=== PATIENT | male | born 1980 | race Caucasian/White ===

== ENCOUNTER → 2019-03-26 16:21 | Outpatient (CLI) | payer BC, SELFPAY ==
--- NOTE | 2019-03-26 16:32 | XR_ITS ---
XR foot LT min 3V HISTORY: ITS.REASON: PAIN ORDERING PHYSICIAN: David Pruitt MD PATIENT AGE: 38 years COMPARISON: None FINDINGS: No fracture or dislocation. No lytic or blastic change. There is normal mineralization.. The joint spaces are well-preserved. No significant degenerative/arthritic changes. No erosive changes evident. IMPRESSION: Negative, no acute finding
== END ==
PROVIDERS: PCP Family Medicine; Visit Provider Family Medicine
DX: M79.672 Pain in left foot (principal)
CPT/HCPCS: 73630

== ENCOUNTER 2020-02-14 20:21 | Emergency (ER) | payer BC, SELFPAY ==
[2020-02-14 20:21] VITALS: BP 139/95; PULSE 95; RESP 16; TEMP 38.3; O2SAT 98
--- NOTE | 2020-02-14 20:25 | PC.NURSE ---
Pt arrived to ER via [facility] at 2010. (trauma alert called) On arrival pt had 500ml bag of NS infusing wide open to a 20g IV in his left AC. pt was on a spine board. no C-Collar present at this time. Pt stated he was up on a 12ft ladder in a tree in his yard trying to cut a limb down when the ladder kicked out from under him. the pt fell approx. 12ft and landed on his right side on top of the ladder. pt denies any head injury or LOC during accident. pt c/o right side pain and rt elbow pain at this time. pt denies any alcohol consumption tonight. C-Collar applied immediately on arrival (2012). Pts clothes are cut of to expose pt to assess for further injuries. Pt A&O X3. PERRLA. Bilateral breath sounds present and clear. abdomen palpated. pt denies any pain. abdomen is soft and non-tender. pt has abrasions present to his right rib cage and right anterior elbow. pt has full range of motion to right arm. pt pelvis assessed. no pain reported. lower extremities assessed. +3 distal pulses present at all extremities. 2016: pts neck stabilized by staff and pt was then rolled to remove spine board and assess the pts posterior side. No visible sign of injury present. second IV assess placed. 18g to right AC at this time with 1000ml of NS started. FSBS obtained: 107
[2020-02-14 20:26] VITALS: BMI 29.2
--- NOTE | 2020-02-14 20:27 | CT_ITS ---
PROCEDURE: CT ABDOMEN PELVIS W CON CLINICAL INDICATION: trauma. fell from 12 ft ladder Right-sided pain following injury, blunt trauma with contusion or hematoma COMPARISON: No exams were available for comparison TECHNIQUE: IV Contrast: 75ML OPTIRAY 350 Oral Contrast 20ml Gastroview Axial images obtained with sagittal and coronal reformats. All CT scans at the facility use one or more dose reduction, viz: automated exposure control, ma/kV adjustment per patient size (including targeted exams where dose is matched to indication, i.e. head), or iterative reconstruction technique. FINDINGS: There are mildly displaced fractures involving the right 7th through 12th ribs. The 7th 8th and 9th rib fractures are lateral. The 10th and 11th rib fractures posterior lateral in the 12th rib fractures posterior no hepatic laceration apparent. No perihepatic fluid. The spleen, adrenal glands, pancreas, gallbladder, and right kidney have an unremarkable appearance. There is a 3.8 cm cyst projecting off the lateral aspect of the left kidney. No evidence of appendicitis or diverticulitis. No pelvic mass or abnormal fluid collection. No free air or small bowel obstruction. There is a tiny umbilical hernia which contains fat. There are few small sclerotic foci in the pelvis which may be due to small bone islands. Nondisplaced fracture right L1 and L2 transverse process. Mildly displaced right L3 and L4 transverse process fractures. There is some mild subcutaneous infiltration of the fat along the right flank consistent with contusion. IMPRESSION: 1. Acute displaced fractures of the right 7th through 12th ribs with acute fracture the right L1 through L4 transverse process. 2. No hemoperitoneum. No evidence of hepatic or splenic laceration with no acute intra-abdominal findings apparent Dictated by: Dave Owusu MD 02/15/2020 06:43 Electronically signed by Dave Owusu MD in [facility] 02/15/2020 06:43
--- NOTE | 2020-02-14 20:27 | XR_ITS ---
PROCEDURE: XR PELVIS 1-2V CLINICAL INDICATION: trauma. fell from 12 ft ladder Posttraumatic pain, trauma protocol/trauma alert COMPARISON: CT ABDOMEN PELVIS W CON from 02/14/2020 TECHNIQUE: XR Pelvis AP View FINDINGS: No fracture or dislocation is evident. No significant degenerative change. Contrast is present in the urinary bladder and right ureter. There is some increased density in the left pelvic region probably related to overlying attenuation from bowel IMPRESSION: No acute fracture Dictated by: Dave Owusu MD 02/15/2020 05:22 Electronically signed by Dave Owusu MD in [facility] 02/15/2020 05:22
--- NOTE | 2020-02-14 20:27 | CT_ITS ---
PROCEDURE: CT HEAD/BRAIN WO CON CLINICAL INDICATION: trauma. fell from 12 ft ladder Posttraumatic pain, Head injury with headache/pain, contusion, abrasion or hematoma COMPARISON: No exams were available for comparison TECHNIQUE: Axial images obtained. All CT scans at the facility use one or more dose reduction, viz: automated exposure control, ma/kV adjustment per patient size (including targeted exams where dose is matched to indication, i.e. head), or iterative reconstruction technique. FINDINGS: No midline shift, mass effect, intracranial hemorrhage, hydrocephalus, or extra-axial fluid collection is evident. The calvarium has an unremarkable appearance. No mastoid effusion. No sinus air-fluid level. IMPRESSION: No acute intracranial finding Dictated by: Dave Owusu MD 02/15/2020 06:27 Electronically signed by Dave Owusu MD in [facility] 02/15/2020 06:27
--- NOTE | 2020-02-14 20:27 | XR_ITS ---
PROCEDURE: XR CHEST AP CLINICAL HISTORY: trauma. fell from 12 ft ladder Posttraumatic pain, trauma alert, trauma protocol the COMPARISON: CT ANGIO CHEST from 02/14/2020 FINDINGS: The cardiomediastinal silhouette and pulmonary vascularity are within normal limits. The lungs are clear without infiltrates, suspicious nodules, or pleural effusions. There are nondisplaced right 7th, 8th, and 9th rib fractures laterally. No obvious pneumothorax. IMPRESSION: Right 7th 8th and 9th rib fractures otherwise negative Dictated by: Dave Owusu MD 02/15/2020 05:20 Electronically signed by Dave Owusu MD in [facility] 02/15/2020 05:20
--- NOTE | 2020-02-14 20:27 | CT_ITS ---
PROCEDURE: CT CERVICAL SPINE WO CON CLINICAL INDICATION: trauma. fell from 12 ft ladder Neck injury with pain, contusion/abrasion or hematoma, cervical sprain/strain, right-sided neck pain COMPARISON: No exams were available for comparison TECHNIQUE: Axial images obtained with sagittal and coronal reformats. All CT scans at the facility use one or more dose reduction, viz: automated exposure control, ma/kV adjustment per patient size (including targeted exams where dose is matched to indication, i.e. head), or iterative reconstruction technique. Axial spiral CT scanning performed of the cervical spine beginning at the base of the skull and continuing to the upper T-spine. 3-D multiplanar reconstruction with 3-D manipulation of volumetric data set in image rendering was completed by the radiologist and/or technologist with the supervision of the radiologist on independent workstation. FINDINGS: There is straightening/reversal of the normal lordosis which may be due to patient positioning or muscle spasm.. No fracture or dislocation. No lytic or blastic change. The disc spaces are well preserved. Lung apices are clear. Scattered small nodes are present in the neck. IMPRESSION: Straightening of cervical lordosis otherwise negative Dictated by: Dave Owusu MD 02/15/2020 06:30 Electronically signed by Dave Owusu MD in [facility] 02/15/2020 06:30
--- NOTE | 2020-02-14 20:27 | CT_ITS ---
PROCEDURE: CT ANGIO CHEST CLINCIAL INDICATION: trauma. fell from 12 ft ladder Blunt trauma, injury with pain with contusion or hematoma, right-sided chest and rib pain COMPARISON: CT ABDOMEN PELVIS W CON from 02/14/2020 TECHNIQUE: IV Contrast: 70ML OPTIRAY 350 Axial images obtained with sagittal and coronal reformats. All CT scans at the facility use one or more dose reduction, viz: automated exposure control, ma/kV adjustment per patient size (including targeted exams where dose is matched to indication, i.e. head), or iterative reconstruction technique. FINDINGS: HEART AND MEDIASTINAL STRUCTURES: Unremarkable. LUNGS AND PLEURAL SPACES: 6 mm noncalcified nodule along the right major fissure. 4 mm nodule along the left major fissure. Mild atelectatic or fibrotic change in the lingula. No evidence of pneumothorax. BONY STRUCTURES: Minimally offset fractures involve the right 7th through 12th ribs. UPPER ABDOMEN: Please see abdomen report ADDITIONAL FINDINGS: No other significant abnormalities. IMPRESSION: Minimally displaced fractures right 7th through 12th ribs. No evidence of pneumothorax or other acute anomaly. Noncalcified bilateral nodules associated with the fissures probably benign. 6-12 month follow-up may confirm short term stability Dictated by: Dave Owusu MD 02/15/2020 06:37 Electronically signed by Dave Owusu MD in [facility] 02/15/2020 06:37
[2020-02-14 20:52] LABS: Basophils # 0.1 K/mm3 (0-0.2); Basophils % 0.6 % (0.1-2.0); Eosinophils # 0.1 K/mm3 (0.0-0.4); Eosinophils % 1.1 % (0.1-12.0); Hematocrit 44.4 % (42.0-52.0); Hemoglobin 15.5 g/dL (14.1-18.0); Lymphocytes # 2.9 K/mm3 (0.7-4.5); Lymphocytes % 35.2 % (10-50); Mean Corpuscular Hemoglobin 31.6 pg (27.0-31.2); Mean Corpuscular Volume 90.2 fl (80-94); Mean Platelet Volume 7.8 fl (7.4-10.4); Monocytes # 0.3 K/mm3 (0.1-1.0); Monocytes % 3.4 % (1.7-9.3); Neutrophils % 59.8 % (37.0-80.0); Platelet Count 254 K/mm3 (142-424); Red Blood Count 4.92 M/mm3 (4.60-6.20); Red Cell Distribution Width 12.5 % (11.5-17.5); White Blood Count 8.4 K/mm3 (4.8-10.8)
--- NOTE | 2020-02-14 20:56 | XR_ITS ---
PROCEDURE: XR ELBOW RT MIN 3V CLINICAL INDICATION: FELL FROM LADDER PAIN AND ABRAISION RT ELBOW Posttraumatic pain COMPARISON: No exams were available for comparison FINDINGS: The the lateral view is rotated. Cannot adequately evaluate for AA fat pad. No definite fractures apparent. If pain persists, consider repeat exam with appropriate positioning. No obvious fracture. . No significant degenerative/arthritic changes. No erosive changes evident. Other findings:There is in antecubital IV cannula present IMPRESSION: No acute finding. See above for detail and limitations Dictated by: Dave Owusu MD 02/15/2020 05:18 Electronically signed by Dave Owusu MD in [facility] 02/15/2020 05:18
[2020-02-14 20:59] LABS: Chloride 104 mmol/L (98-107); Potassium 3.2 mmoL/L (3.5-5.1); Sodium 142 mmol/L (136-145)
[2020-02-14 21:01] LABS: Alanine Aminotransferase 88 U/L (12-78); Aspartate Amino Transferase 93 U/L (17-59); Blood Urea Nitrogen 11 mg/dl (9-20); Creatinine Clearance Estimated 121 mL/min (50-200); Estimated Glomerular Filt Rate 75 ml/min (>60); GFR (African American) 90 ML/MIN (>60)
[2020-02-14 21:02] LABS: Albumin Level 4.8 g/dl (3.5-5.0); Albumin/Globulin Ratio 1.5 (1.1-1.8); Alkaline Phosphatase 47 U/L (38-126); Anion Gap 12.2 mEq/L (5-15); Bilirubin,Total 0.7 mg/dl (0.2-1.3); Calcium 9.3 mg/dl (8.4-10.2); Carbon Dioxide 29 mmol/L (22.0-30.0); Globulin 3.1 g/dL (1.3-3.2); Glucose 128 mg/dl (74-100); Total Protein,Serum 7.9 g/dl (6.3-8.2)
[2020-02-14 21:04] LABS: Ethyl Alcohol < 10 mg/dl (0-10)
--- NOTE | 2020-02-14 21:14 | PC.NURSE ---
pt back from radiology.
--- NOTE | 2020-02-14 21:16 | PC.NURSE ---
PT CT cervical spine was clear. C-Collar removed at this time.
[2020-02-14 21:21] VITALS: BP 133/100; PULSE 90; RESP 16; O2SAT 98
--- NOTE | 2020-02-14 21:21 | PC.NURSE ---
consulting Dr. Bishop at [facility]
--- NOTE | 2020-02-14 21:33 | PC.NURSE ---
consulting [facility]
--- NOTE | 2020-02-14 21:39 | PC.NURSE ---
Dr. Valencia accepted
--- NOTE | 2020-02-14 21:39 | [facility].EDTRAUMA ---
ED Disposition Clinical Impression: Multiple rib fractures, Lumbar transverse process fracture Disposition: Xfer Other Condition on Discharge: Good Instructions: Trauma Referrals: Provider,Referral, [Primary Care Provider] - - Critical Care Critical Care Time: No Attestation: On 02/14/20, the high probability of a clinically significant, sudden or life threatening deterioration of the following system(s) required my full and direct attention, intervention and personal management. The time I documented below is in addition to time spent performing reported procedures but includes the following listed in this critical care notation. Medical Decision Making - Medical Records Medical records reviewed: Yes: I reviewed the patient's medical records. - [place] Inquiry Pt receiving controlled substance: No Vital Signs: 02/14/20 20:21 02/14/20 21:21 Temperature 100.9 F H Temperature Source Oral Pulse Rate [Left Radial] 95 H 90 Respiratory Rate 16 16 Blood Pressure [Right Arm] 139/95 H 133/100 H Blood Pressure Mean [Right Arm] 109 111 Blood Pressure Position [Right Arm] Sitting Sitting 02 Sat by Pulse Oximetry 98 98 Oxygen Delivery Method Room Air Room Air - Lab Data Lab results reviewed: Yes: I reviewed the patient's lab results. Lab Results 02/14/20 20:47: WBC 8.4, RBC 4.92, Hgb 15.5, Hct 44.4, MCV 90.2, MCH 31.6 H, MCHC 35.0, RDW 12.5, Plt Count 254, MPV 7.8, Neut % (Auto) 59.8, Lymph % (Auto) 35.2, [place] % (Auto) 3.4, Eos % (Auto) 1.1, Baso % (Auto) 0.6, Neut # (Auto) 5.0, Lymph # (Auto) 2.9, [place] # (Auto) 0.3, Eos # (Auto) 0.1, Baso # (Auto) 0.1 02/14/20 20:47: Sodium 142, Potassium 3.2 L, Chloride 104, Carbon Dioxide 29, Anion Gap 12.2, BUN 11, Creatinine 1.10, Estimated Creat Clear 121, Estimated GFR 75, Est GFR ( Amer) 90, Glucose 128 H, Calcium 9.3, Total Bilirubin 0.7, AST 93 H, ALT 88 H, Alkaline Phosphatase 47, Total Protein 7.9, Albumin 4.8, Globulin 3.1, Albumin/Globulin Ratio 1.5 02/14/20 20:47: Plasma/Serum Alcohol < 10 Result diagrams: 02/14/20 20:47 02/14/20 20:47 Orders (Tests/Meds): ED MEDICATIONS Generic Name Dose Route Start Last Admin Trade Name Freq PRN Reason Stop Dose Admin Sodium Chloride 1,000 mls @ 999 mls/hr 02/14/20 21:30 02/14/20 21:31 Sod Chlor 0.9% 1000ml Bag IV 02/14/20 22:30 999 mls/hr .[id number] LUCHO Administration Discontinued Medications Generic Name Dose Route Start Last Admin Trade Name Freq PRN Reason Stop Dose Admin Ketorolac Tromethamine 30 mg 02/14/20 21:28 02/14/20 21:31 Toradol 30mg/Ml Vial IV 02/14/20 21:29 30 mg ONCE ONE Administration Ondansetron HCl 4 mg 02/14/20 21:28 02/14/20 21:31 Zofran 4mg/2ml Vial IV 02/14/20 21:29 4 mg ONCE ONE Administration ORDERS Category Date Time Status CT abdomen pelvis w con Stat Cat Scan 02/14/20 20:[address] angio chest Stat Cat Scan 02/14/20 20:[address] cervical spine wo con Stat Cat Scan 02/14/20 20:[address] head/brain wo con Stat Cat Scan 02/14/20 20:27 Taken XR chest AP Stat Exams 02/14/20 20:27 Taken XR elbow RT min 3V Routine Exams 02/14/20 20:56 Taken XR pelvis 1-2V Stat Exams 02/14/20 20:27 Taken - CT Data CT Scan: Head, C-Spine, Abdomen, Pelvis, Chest Time Received: 21:[address] Reviewed: Yes: I have reviewed the patient's CT results, I have viewed the radiologist's interpretation Preliminary Findings: Abnormal (Patient has multiple displaced rib fractures extending from ribs 7 to rib 12 midaxillary on the right side. Patient also has multiple transverse processes fractures extending from L1-L4 on the right side as well.) Medical Decision Narrative: Patient is presently cannot be transferred to [facility] I spoke with Dr. Valencia in the emergency department Trauma Alert The Trauma Alert Section documentation for [id number] Brandon Kwon was populated with data that defaulted in from the RN do
--- NOTE | 2020-02-14 21:40 | PC.NURSE ---
consulting [employer] [facility] for transport
--- NOTE | 2020-02-14 21:43 | PC.NURSE ---
[facility] et[facility] 5 minute lift off and 12 minute flight time
--- NOTE | 2020-02-14 21:46 | PC.NURSE ---
report called to conrado and MARCO ANTONIO
--- NOTE | 2020-02-14 21:52 | PC.NURSE ---
[facility] update [place] 2 10 minutes out
[2020-02-14 21:59] VITALS: BP 143/76; PULSE 105; RESP 16; O2SAT 97
[2020-02-14 22:12] VITALS: BP 149/80; PULSE 95; RESP 18; O2SAT 99
--- NOTE | 2020-02-14 22:12 | PC.NURSE ---
[facility] at bedside
[2020-02-14 22:21] VITALS: BP 145/80; PULSE 95; RESP 18; TEMP 38.3; O2SAT 98
[2020-03-05 14:49] LABS: POC Glucose,Bedside 107 (70-110)
== END 2020-02-14 22:26 | disposition other institution (70) ==
PROVIDERS: Emergency Provider Family Medicine
DX: S32.009A Unspecified fracture of unspecified lumbar vertebra, initial encounter for closed fracture (principal); S22.49XA Multiple fractures of ribs, unspecified side, initial encounter for closed fracture; W11.XXXA Fall on and from ladder, initial encounter; Y92.017 Garden or yard in single-family (private) house as the place of occurrence of the external cause
CPT/HCPCS: 70450; 71045; 71275; 72125; 72170; 73080; 74177; 80053; 82962; 85025; 96365; 96375; 99283; J2405; Q9967

== ENCOUNTER → 2020-03-04 10:38 | Outpatient (CLI) | payer BC, SELFPAY ==
--- NOTE | 2020-03-04 10:47 | XR_ITS ---
PROCEDURE: XR RIBS RT MIN 3V W CXR1V CLINICAL INDICATION: Pain, follow-up fracture COMPARISON: XR CHEST AP from 02/14/2020 CT ABDOMEN PELVIS W CON from 02/14/2020 CT ANGIO CHEST from 02/14/2020 FINDINGS: Unremarkable cardiovascular structures. Lungs are clear. Nondisplaced fractures involve the right 7th 8th 9th 11th and 12th ribs. There is minimal displacement of the 11th rib fracture and 10th rib fracture. There is no evidence of pneumothorax. No significant callus formation apparent. IMPRESSION: No change right 7th through 12th rib fractures. No evidence of pneumothorax or hemothorax. Dictated by: Dave Owusu MD 03/04/2020 15:11 Electronically signed by Dave Owusu MD in [place] 03/04/2020 15:11
--- NOTE | 2020-03-04 10:47 | XR_ITS ---
PROCEDURE: XR LUMBAR SPINE MIN 4V CLINICAL INDICATION: CLOSED FACTURE OF RIBS ON R SIDE AND OF TRASVERSE PROCESS Follow-up fracture, pain COMPARISON: CT ABDOMEN PELVIS W CON from 02/14/2020 FINDINGS: There is normal alignment. There are minimally distracted fractures involving the right 1st, 2nd, 3rd, and 4th transverse processes as well as the posterior aspect of the right 12th rib. Overall no significant change from 02/14/2020 Other findings:None. IMPRESSION: No change transverse process fractures L1 through L4 and right 12th rib fracture Dictated by: Dave Owusu MD 03/04/2020 15:02 Electronically signed by Dave Owusu MD in [facility] 03/04/2020 15:02
== END ==
PROVIDERS: PCP Family Medicine; Visit Provider Family Medicine
DX: S22.41XD Multiple fractures of ribs, right side, subsequent encounter for fracture with routine healing (principal); S32.009D Unspecified fracture of unspecified lumbar vertebra, subsequent encounter for fracture with routine healing
CPT/HCPCS: 71101; 72110

== ENCOUNTER → 2020-04-13 16:15 | Outpatient (CLI) | payer BC, SELFPAY | PROVIDERS: PCP Family Medicine; Visit Provider Nurse Practitioner Family | DX: Z03.818 Encounter for observation for suspected exposure to other biological agents ruled out (principal) | CPT/HCPCS: U0003 ==

== ENCOUNTER 2023-11-03 06:21 | Day surgery (SDC) | payer BC, SELFPAY ==
[2023-11-01 17:05] VITALS: BMI 31.1
[2023-11-03 06:41] VITALS: BP 143/91; PULSE 89; RESP 20; TEMP 36.2; O2SAT 99
--- NOTE | 2023-11-03 08:16 | P.OP_ITS ---
Date of procedure: 11/03/23 Pre-op Diagnosis:: Scalp cyst (1 cm parietal scalp cyst) Post-op Diagnosis:: Same Procedure performed:: Excision of 1 cm parietal scalp cyst Surgeon:: Kun Sheppard MD Anesthesia: local Estimated blood loss (mL): 15 Operative findings:: Atypical lobulation along inferior/anterior margin Operative note:: After informed consent was obtained the patient was taken to the procedure room. His parietal scalp region was prepped and draped in a sterile fashion. After infiltration with local anesthetic a small elliptical incision was made overlying the palpable lesion. The underlying soft tissue was carefully diss ected with scalpel. As the anterior margin was approached the cyst cavity was entered. Further inspection revealed a somewhat atypical lobulation along the inferior/anterior cyst margin. Essentially, there was an expansion of cyst tissue beyond the palpable abnormality. A combination of sharp dissection and electrocautery was utilized to remove the lesion in toto (essentially piecemeal) and it was passed off for pathologic evaluation. Electrocautery was utilized to achieve hemostasis. The wound was packed open both to improve hemostasis and to allow for dressing changes (given cyst cavity entry). Dressings were applied and the patient was discharged home in good condition. Condition: stable Disposition: no change Specimens:: Parietal scalp cyst Complications:: No immediate
== END 2023-11-03 08:20 | disposition home or self-care (01) ==
PROVIDERS: PCP Family Medicine; Visit Provider Surgery
PROC: (CPT 11421; principal; 2023-11-03 07:30)
DX: L72.12 Trichodermal cyst (principal)
CPT/HCPCS: 11421

== ENCOUNTER 2023-11-04 10:55 | Outpatient (CLI) | payer BC, SELFPAY | END 2023-11-04 11:15 | disposition home or self-care (01) | LOC: INF 10:56 | PROVIDERS: PCP Family Medicine; Visit Provider Surgery | DX: L72.11 Pilar cyst (principal); L72.9 Follicular cyst of the skin and subcutaneous tissue, unspecified; Z48.01 Encounter for change or removal of surgical wound dressing | CPT/HCPCS: G0463 ==

== ENCOUNTER 2023-11-05 08:33 | Outpatient (CLI) | payer BC, SELFPAY | END 2023-11-05 09:45 | disposition home or self-care (01) | LOC: INF 08:34 | PROVIDERS: PCP Family Medicine; Visit Provider Surgery | DX: L72.11 Pilar cyst (principal); L72.9 Follicular cyst of the skin and subcutaneous tissue, unspecified; Z48.01 Encounter for change or removal of surgical wound dressing | CPT/HCPCS: G0463 ==

== ENCOUNTER 2023-11-06 08:36 | Outpatient (CLI) | payer BC, SELFPAY | END 2023-11-06 09:01 | disposition home or self-care (01) | LOC: INF 08:37 | PROVIDERS: PCP Family Medicine; Visit Provider Surgery | DX: L72.11 Pilar cyst (principal); L72.9 Follicular cyst of the skin and subcutaneous tissue, unspecified; Z48.01 Encounter for change or removal of surgical wound dressing | CPT/HCPCS: G0463 ==

== ENCOUNTER 2023-11-07 15:47 | Outpatient (CLI) | payer BC, SELFPAY | END 2023-11-07 16:00 | disposition home or self-care (01) | LOC: INF 15:48 | PROVIDERS: PCP Family Medicine; Visit Provider Surgery | DX: L72.11 Pilar cyst (principal); L72.9 Follicular cyst of the skin and subcutaneous tissue, unspecified; Z48.01 Encounter for change or removal of surgical wound dressing | CPT/HCPCS: G0463 ==

== ENCOUNTER 2023-11-08 15:46 | Outpatient (CLI) | payer BC, SELFPAY | END 2023-11-08 16:09 | disposition home or self-care (01) | PROVIDERS: PCP Family Medicine; Visit Provider Surgery | DX: Z48.01 Encounter for change or removal of surgical wound dressing (principal) | CPT/HCPCS: G0463 ==

== ENCOUNTER 2023-11-10 15:50 | Outpatient (CLI) | payer BC, SELFPAY | END 2023-11-10 16:13 | disposition home or self-care (01) | LOC: INF 15:51 | PROVIDERS: PCP Family Medicine; Visit Provider Surgery | DX: L72.12 Trichodermal cyst (principal); Z48.01 Encounter for change or removal of surgical wound dressing | CPT/HCPCS: G0463 ==

== ENCOUNTER 2023-11-11 15:44 | Outpatient (CLI) | payer BC, SELFPAY | END 2023-11-11 16:00 | disposition home or self-care (01) | LOC: INF 15:44 | PROVIDERS: PCP Family Medicine; Visit Provider Surgery | DX: L72.12 Trichodermal cyst (principal); Z48.01 Encounter for change or removal of surgical wound dressing | CPT/HCPCS: G0463 ==

== ENCOUNTER 2023-11-12 08:40 | Outpatient (CLI) | payer BC, SELFPAY | END 2023-11-12 23:59 | LOC: INF 08:42 | PROVIDERS: PCP Family Medicine; Visit Provider Surgery | DX: Z48.01 Encounter for change or removal of surgical wound dressing (principal) | CPT/HCPCS: G0463 ==

== ENCOUNTER 2023-11-13 08:51 | Outpatient (CLI) | payer BC, SELFPAY | END 2023-11-13 23:59 | LOC: INF 08:51 | PROVIDERS: PCP Family Medicine; Visit Provider Surgery | DX: Z48.01 Encounter for change or removal of surgical wound dressing (principal) | CPT/HCPCS: G0463 ==

== ENCOUNTER 2023-11-14 15:46 | Outpatient (CLI) | payer BC, SELFPAY | END 2023-11-14 16:03 | disposition home or self-care (01) | LOC: INF 15:46 | PROVIDERS: PCP Family Medicine; Visit Provider Surgery | DX: L72.0 Epidermal cyst (principal); Z48.00 Encounter for change or removal of nonsurgical wound dressing | CPT/HCPCS: G0463 ==

== ENCOUNTER 2023-11-15 15:40 | Outpatient (CLI) | payer BC, SELFPAY ==
[2023-11-15 20:45] VITALS: BMI 31.1
--- NOTE | 2023-11-15 21:08 | PC.NURSE ---
Late entry: He returned to facility after his dressing came out of the area on his head. Chart reviewed and DSG replaced.
[2023-11-15 21:12] VITALS: BP 150/107; PULSE 86; RESP 17; TEMP 37.1; O2SAT 97
== END 2023-11-15 20:55 | disposition home or self-care (01) ==
LOC: INF 15:40
PROVIDERS: PCP Family Medicine; Visit Provider Surgery
DX: L72.12 Trichodermal cyst (principal); Z48.01 Encounter for change or removal of surgical wound dressing
CPT/HCPCS: G0463

== ENCOUNTER 2023-11-16 15:42 | Outpatient (CLI) | payer BC, SELFPAY | END 2023-11-16 15:50 | disposition home or self-care (01) | LOC: INF 15:43 | PROVIDERS: PCP Family Medicine; Visit Provider Surgery | DX: L72.12 Trichodermal cyst (principal); Z48.01 Encounter for change or removal of surgical wound dressing | CPT/HCPCS: G0463 ==

== ENCOUNTER 2023-11-17 15:56 | Outpatient (CLI) | payer BC, SELFPAY | END 2023-11-17 16:23 | disposition home or self-care (01) | LOC: INF 15:56 | PROVIDERS: PCP Family Medicine; Visit Provider Surgery | DX: L72.12 Trichodermal cyst (principal); Z48.01 Encounter for change or removal of surgical wound dressing | CPT/HCPCS: G0463 ==

== ENCOUNTER 2023-11-18 15:49 | Outpatient (CLI) | payer BC, SELFPAY | END 2023-11-18 16:04 | disposition home or self-care (01) | LOC: INF 15:49 | PROVIDERS: PCP Family Medicine; Visit Provider Surgery | DX: L72.12 Trichodermal cyst (principal); Z48.01 Encounter for change or removal of surgical wound dressing | CPT/HCPCS: G0463 ==

== ENCOUNTER 2023-11-19 09:10 | Outpatient (CLI) | payer BC, SELFPAY | END 2023-11-19 09:34 | disposition home or self-care (01) | LOC: INF 09:11 | PROVIDERS: PCP Family Medicine; Visit Provider Surgery | DX: L72.12 Trichodermal cyst (principal); Z48.01 Encounter for change or removal of surgical wound dressing | CPT/HCPCS: G0463 ==

== ENCOUNTER 2023-11-20 09:19 | Outpatient (CLI) | payer BC, SELFPAY | END 2023-11-20 09:31 | disposition home or self-care (01) | LOC: INF 09:19 | PROVIDERS: PCP Family Medicine; Visit Provider Surgery | DX: L72.12 Trichodermal cyst (principal); Z48.01 Encounter for change or removal of surgical wound dressing | CPT/HCPCS: G0463 ==

== ENCOUNTER 2023-11-21 15:47 | Outpatient (CLI) | payer BC, SELFPAY | END 2023-11-21 16:00 | disposition home or self-care (01) | LOC: INF 15:47 | PROVIDERS: PCP Family Medicine; Visit Provider Surgery | DX: L72.12 Trichodermal cyst (principal); Z48.01 Encounter for change or removal of surgical wound dressing | CPT/HCPCS: G0463 ==

== ENCOUNTER 2023-11-22 15:39 | Outpatient (CLI) | payer BC, SELFPAY | END 2023-11-22 16:01 | disposition home or self-care (01) | LOC: INF 15:39 | PROVIDERS: PCP Family Medicine; Visit Provider Surgery | DX: L72.12 Trichodermal cyst (principal); Z48.01 Encounter for change or removal of surgical wound dressing | CPT/HCPCS: G0463 ==

== ENCOUNTER 2023-11-23 15:45 | Outpatient (CLI) | payer BC, SELFPAY | END 2023-11-23 16:03 | disposition home or self-care (01) | LOC: INF 15:46 | PROVIDERS: PCP Family Medicine; Visit Provider Surgery | DX: L72.12 Trichodermal cyst (principal); Z48.01 Encounter for change or removal of surgical wound dressing | CPT/HCPCS: G0463 ==

== ENCOUNTER 2023-11-24 15:44 | Outpatient (CLI) | payer BC, SELFPAY | END 2023-11-24 16:11 | disposition home or self-care (01) | LOC: INF 15:45 | PROVIDERS: PCP Family Medicine; Visit Provider Surgery | DX: L72.12 Trichodermal cyst (principal); Z48.01 Encounter for change or removal of surgical wound dressing | CPT/HCPCS: G0463 ==

== ENCOUNTER 2023-11-25 15:24 | Outpatient (CLI) | payer BC, SELFPAY | END 2023-11-25 15:40 | disposition home or self-care (01) | LOC: INF 15:24 | PROVIDERS: PCP Family Medicine; Visit Provider Surgery | DX: L72.12 Trichodermal cyst (principal); Z48.01 Encounter for change or removal of surgical wound dressing | CPT/HCPCS: G0463 ==

== ENCOUNTER 2023-11-26 08:41 | Outpatient (CLI) | payer BC, SELFPAY | END 2023-11-26 23:59 | PROVIDERS: PCP Family Medicine; Visit Provider Surgery | DX: Z48.01 Encounter for change or removal of surgical wound dressing (principal) | CPT/HCPCS: G0463 ==

== ENCOUNTER 2023-11-27 08:44 | Outpatient (CLI) | payer BC, SELFPAY ==
[2023-11-27 08:44] VITALS: BP 140/94; PULSE 78; RESP 18; O2SAT 98
[2023-11-27 09:00] VITALS: BP 140/94; PULSE 74; RESP 18; O2SAT 98
== END 2023-11-27 09:00 | disposition home or self-care (01) ==
LOC: INF 08:45
PROVIDERS: PCP Family Medicine; Visit Provider Surgery
DX: L72.12 Trichodermal cyst (principal); Z48.01 Encounter for change or removal of surgical wound dressing
CPT/HCPCS: G0463

== ENCOUNTER 2023-11-28 15:50 | Outpatient (CLI) | payer BC, SELFPAY | END 2023-11-28 16:07 | disposition home or self-care (01) | LOC: INF 15:51 | PROVIDERS: PCP Family Medicine; Visit Provider Surgery | DX: L72.12 Trichodermal cyst (principal); Z48.01 Encounter for change or removal of surgical wound dressing | CPT/HCPCS: G0463 ==

== ENCOUNTER 2023-11-29 15:44 | Outpatient (CLI) | payer BC, SELFPAY | END 2023-11-29 16:08 | disposition home or self-care (01) | LOC: INF 15:44 | PROVIDERS: PCP Family Medicine; Visit Provider Surgery | DX: L72.12 Trichodermal cyst (principal); Z48.01 Encounter for change or removal of surgical wound dressing | CPT/HCPCS: G0463 ==

== ENCOUNTER 2023-11-30 15:45 | Outpatient (CLI) | payer BC, SELFPAY | END 2023-11-30 16:03 | disposition home or self-care (01) | LOC: INF 15:46 | PROVIDERS: PCP Family Medicine; Visit Provider Surgery | DX: L72.12 Trichodermal cyst (principal); Z48.01 Encounter for change or removal of surgical wound dressing | CPT/HCPCS: G0463 ==

== ENCOUNTER 2023-12-01 15:56 | Outpatient (CLI) | payer BC, SELFPAY | END 2023-12-01 16:11 | disposition home or self-care (01) | LOC: INF 15:56 | PROVIDERS: PCP Family Medicine; Visit Provider Surgery | DX: L72.12 Trichodermal cyst (principal); Z48.01 Encounter for change or removal of surgical wound dressing | CPT/HCPCS: G0463 ==

== ENCOUNTER 2023-12-02 15:44 | Outpatient (CLI) | payer BC, SELFPAY | END 2023-12-02 15:52 | disposition home or self-care (01) | PROVIDERS: PCP Family Medicine; Visit Provider Surgery | DX: L72.12 Trichodermal cyst (principal); Z48.01 Encounter for change or removal of surgical wound dressing | CPT/HCPCS: G0463 ==

== ENCOUNTER 2023-12-03 08:28 | Outpatient (CLI) | payer BC, SELFPAY ==
[2023-12-03 08:45] VITALS: BP 145/97; PULSE 72; RESP 18; O2SAT 98
== END 2023-12-03 23:59 ==
LOC: INF 08:28
PROVIDERS: PCP Family Medicine; Visit Provider Surgery
DX: Z48.01 Encounter for change or removal of surgical wound dressing (principal)
CPT/HCPCS: G0463

== ENCOUNTER 2023-12-04 09:57 | Outpatient (CLI) | payer BC, SELFPAY | END 2023-12-04 23:59 | LOC: INF 09:58 | PROVIDERS: PCP Family Medicine; Visit Provider Surgery | DX: Z48.01 Encounter for change or removal of surgical wound dressing (principal) | CPT/HCPCS: G0463 ==

== ENCOUNTER 2023-12-05 15:44 | Outpatient (CLI) | payer BC, SELFPAY | END 2023-12-05 15:55 | disposition home or self-care (01) | LOC: INF 15:44 | PROVIDERS: PCP Family Medicine; Visit Provider Surgery | DX: Z48.01 Encounter for change or removal of surgical wound dressing (principal) | CPT/HCPCS: G0463 ==

== ENCOUNTER 2023-12-06 15:41 | Outpatient (CLI) | payer BC, SELFPAY | END 2023-12-06 15:51 | disposition home or self-care (01) | LOC: INF 15:41 | PROVIDERS: PCP Family Medicine; Visit Provider Surgery | DX: Z48.01 Encounter for change or removal of surgical wound dressing (principal) | CPT/HCPCS: G0463 ==

== ENCOUNTER 2024-03-07 12:47 | Emergency (ER) | payer BC, SELFPAY ==
[2024-03-07 12:48] VITALS: BP 145/99; PULSE 91; RESP 13; TEMP 37.6; O2SAT 96; BMI 30.3
[2024-03-07 12:59] VITALS: BP 145/99; PULSE 86; O2SAT 97
--- NOTE | 2024-03-07 13:00 | HMH.EDGENADL ---
Discharge Plan Disposition Patient Disposition: Home, Self-Care Condition: Good Prescriptions Prescriptions: No Action lisinopril-hydrochlorothiazide 20-12.5 mg tablet 1 tab PO DAILY omega-3 fatty acids Capsule 1,000 mg PO DAILY multivitamin Tablet 1 tab PO DAILY Referrals Follow up/Referrals: David Pruitt MD [Primary Care Provider] - See instructions Activity Restrictions/Add. Instructions Additional Instructions/Restrictions: You have been evaluated in the ED for your complaints. You may follow-up with your PCP in the next 3 to 5 days. Please return to ED for any new or worsening symptoms. Please wear tight fitting underwear to assist with your symptoms. Please take Tylenol and ibuprofen on a schedule as needed. Clinical Impressions Clinical Impression: Left testicular pain, Left hydrocele, Left varicocele Discharge ED Provider: Deep Cole General Adult HPI General Chief complaint: PAIN Stated complaint: Patient will disclose with rubin massey Time Seen by Provider: 03/07/24 13:00 History of Present Illness HPI narrative: 43-year-old male with past medical history significant for left inguinal hernia, HTN, presents today for evaluation concerning left testicular pain onset early this morning. He states that he continues to make urine and has not had any hematuria. He states that he he also has pain in his suprapubic region radiating around to the left flank. Denies any fevers or chills. Denies any chest pain or shortness of breath. He states that he has been drinking plenty of water and sometimes energy drinks. No further complaints. Related Data Home Medications Medication Instructions Recorded Confirmed lisinopril 20 1 tab PO DAILY 10/26/23 12/07/23 mg-hydrochlorothiazide 12.5 mg tablet multivitamin 1 tab PO DAILY 11/01/23 12/07/23 omega-3 fatty acids 1,000 mg PO DAILY 11/01/23 12/07/23 Allergies Allergy/AdvReac Type Severity Reaction Status Date / Time No Known Allergies Allergy Verified 12/07/23 09:16 [facility] Disclaimer: The information contained in this section may have been updated after the patient was seen, as this information can be updated by other users. Medical History Hypertension Surgical History History of excision of lesion History of hernia repair Family History Other Family history of cancer Family history of myocardial infarction Social History Smoking Status: Never smoker alcohol intake: current alcohol intake frequency: holidays/special occasions only current occupational status: employed Travel in the last 8 weeks: None caffeine: Yes ROS Obtained: Yes All systems reviewed & no additional complaints except as documented Physical Exam General General appearance: alert and in no apparent distress Head Head exam: atraumatic and normocephalic Eye Eye exam: Present normal appearance, PERRL and EOMI ENT ENT exam: Present normal oropharynx and mucous membranes moist Neck Neck exam: Present full ROM; Absent meningismus Respiratory Respiratory exam: Absent respiratory distress, wheezes, stridor or accessory muscle use Cardiovascular Cardiovascular exam: Present normal rhythm Abdominal Exam Abdominal exam: Present soft and tenderness; Absent distention, guarding, rebound or rigidity Abdominal tenderness: Present LLQ, suprapubic and mild exam: Present normal inspection, testicular tenderness (Mild testicular tenderness on the left. Normal cremasteric reflex), normal testicular lie and circumcised; Absent urethral discharge or scrotal swelling Neurological Exam Neurological exam: Present alert, oriented X3 and CN II-XII intact; Absent motor sensory deficit Psychiatric Psychiatric exam: Present normal affect and normal mood Skin Skin exam: Present warm and dry Medical Decision Making Medical Records Medical records reviewed: Yes I reviewed the patient's medical records. Thiago Inquiry Pt receiving controlled substance: No Thiago was queried for this patient: No Vital Signs: 03/07/24 12:48 03/07/24 12:59 Temperature 99.6 F Temperature Source Oral Pulse Rate 86 Pulse Rate [Left Radial] 91 H Respiratory Rate 13 Blood Pressure 145/99 H Blood Pressure [Right Arm] 145/99 H Blood Pressure Mean [Right Arm] 114 02 Sat by Pulse Oximetry 96 97 Oxygen Delivery Method Room Air Room Air Lab Data Lab Results 03/07/24 13:20: WBC 13.6 H, RBC 4.90, Hgb 16.0, Hct 44.6, MCV 91.1, MCH 32.7 H, MCHC 35.9 H, RDW 13.0, Plt Count 220, MPV 8.5, Neut % (Auto) 88.6 H, Lymph % (Auto) 7.4 L, [place] % (Auto) 3.4, Eos % (Auto) 0.2, Baso % (Auto) 0.5, Neut # (Auto) 12.0 H, Lymph # (Auto) 1.0, [place] # (Auto) 0.5, Eos # (Auto) 0.0, Baso # (Auto) 0.1, Total Counted 100, Neutrophils % (Manual) 86 H, Lymphocytes % (Manual) 13, Monocytes % (Manual) 1 L, Platelet Estimate Normal, RBC Morphology Normal, Sodium 141, Potassium 3.4 L, Chloride 105, Carbon Dioxide 29, Anion Gap 10.4, BUN 14, Creatinine 1.00, Estimated Creat Clear 141, Estimated GFR 82, Est GFR ( Amer) 99, Glucose 115 H, Calcium 9.7, Total Bilirubin 0.7, AST 33, ALT 45, Alkaline Phosphatase 54, Total Protein 8.3 H, Albumin 5.0, Globulin 3.3 H, Albumin/Globulin Ratio 1.5, Lipase 63 03/07/24 14:07: Lactate 1.3 03/07/24 14:15: Urine Color Yellow, Urine Appearance Clear, Urine pH 6.0, Ur Specific [place] 1.025, Urine Protein Negative, Urine Glucose (UA) Negative, Urine Ketones Negative, Urine Blood 2+, Urine Nitrate Negative, Urine Bilirubin Negative, Urine Urobilinogen 0.2, Ur Leukocyte Esterase Negative, Urine RBC Occasional, Urine WBC None, Ur Squamous Epith Cells Occasional, Urine Bacteria None 03/07/24 13:20 03/07/24 13:20 Orders (Tests/Meds): ED MEDICATIONS Generic Name Dose Route Start Last Admin Trade Name Freq PRN Reason Stop Dose Admin Sodium Chloride 10 ml 03/07/24 13:26 Sodium Chloride 0.9% 10ml Flush Syringe IV 04/06/24 13:25 NEEDED PRN Maintain IV Site Discontinued Medications Generic Name Dose Route Start Last Admin Trade Name Freq PRN Reason Stop Dose Admin Iopamidol 75 ml 03/07/24 14:05 03/07/24 14:07 Iopamidol-370 (76%);100ml Bottle IV 03/07/24 14:06 75 ml ONCE ONE Administration Ketorolac Tromethamine 30 mg 03/07/24 13:13 03/07/24 13:24 Ketorolac 30mg/Ml Vial IM 03/07/24 13:14 Not Given ONCE ONE Ketorolac Tromethamine 30 mg 03/07/24 13:21 03/07/24 13:22 Ketorolac 30mg/Ml Vial IV 03/07/24 13:22 30 mg ONCE ONE Administration Sodium Chloride 10 ml 03/07/24 14:05 03/07/24 14:07 Sodium Chloride 0.9% 10ml Syr (Rad Only) IV 03/07/24 14:06 10 ml ONCE ONE Administration ORDERS Category Date Time Status CT abdomen pelvis w con Stat Cat Scan 03/07/24 13:11 Completed CBC w/Auto Diff [Complete Blood Count Auto Diff] Stat Lab 03/07/24 13:20 Completed CMP [Comprehensive Metabolic Panel] Stat Lab 03/07/24 13:20 Completed Lactic Acid Stat Lab 03/07/24 14:07 Completed Lipase Stat Lab 03/07/24 13:20 Completed UA [Urinalysis and Microscopic] Stat Lab 03/07/24 14:15 Completed Testicular US [US Testicular] Stat Ultrasound 03/07/24 13:11 Completed Medical Decision Narrative: 43-year-old male with past medical history significant for left inguinal hernia, HTN, presents today for evaluation concerning left testicular pain onset early this morning. He states that he continues to make urine and has not had any hematuria. He states that he he also has pain in his suprapubic region radiating around to the left flank. On assessment he was medically stable and in no acute distress. Afebrile. Chest clear to station bilaterally. Abdomen was soft and nondistended however he did have mild suprapubic and left lower quadrant tenderness to palpation. exam revealed testicles in normal lie. He did have mild tenderness on the left. Normal cremasteric reflex. No epididymal tenderness. He did not have any CVA tenderness bilaterally. He did appear uncomfortable. Otherwise exam is unremarkable differential diagnoses include but limited to nephrolithiasis, testicular torsion, hydrocele, varicocele, epididymitis, UTI, among others. Labs today show a WBC of 13.6. No signs of UTI on urinalysis. Scrotal ultrasound showing a left hydrocele and left varicocele. CT abdomen pelvis with no acute intra-abdominal abnormalities noted. On reassessment the patient remains hemodynamically stable and in no acute distress. His pain is resolved at this time. He has continued to urinate without difficulty. I discussed ED workup and results as well as current plan to discharge home with supportive care measures in the setting of his left hydrocele and varicocele. Instructed him concerning tight fitting underwear and scheduled Tylenol and ibuprofen as needed. He verbalized understanding and agreement with plan. Provided with return ED precautions. Subsequently discharged hemodynamically stable and in no acute distress Critical Care Critical Care Time Critical Care Time: No
--- NOTE | 2024-03-07 13:11 | CT_ITS ---
FINAL REPORT CLINICAL HISTORY: Suprapubic, LLQ pain, possible stone COMPARISON: None FINDINGS: CT OF THE ABDOMEN AND PELVIS WITH CONTRAST Axial CT images of the abdomen and pelvis were obtained after the administration of IV contrast. Coronal reformatted images were also obtained and reviewed.This study was performed with techniques to keep radiation doses as low as reasonably achievable (ALARA). Individualized dose reduction techniques using automated exposure control or adjustment of mA and/or kV according to the patient''s size were employed. Abdomen: The lung bases are clear. The heart is normal in size. The liver has an unremarkable appearance, without evidence of mass or biliary ductal dilatation. The spleen is unremarkable. No adrenal mass is present. The pancreas has an unremarkable appearance. There is a 5 cm left renal cyst. The aorta is normal in caliber. There is no free fluid or adenopathy. No mass or abnormal fluid collection is seen. There is a small umbilical hernia containing fat. Pelvis: The appendix is enlarged measuring up to 10 mm. It is fluid-filled with surrounding inflammation. Findings are consistent with acute appendicitis. The urinary bladder is unremarkable. No inflammatory process is seen. There is no evidence of mass or adenopathy. There is no evidence of bowel obstruction. IMPRESSION: No evidence of acute intra-abdominal process. Reviewed, Interpreted and Dictated by Shahzad Villavicencio III, MD Transcribed by Gladys Ling Authenticated and [facility]
--- NOTE | 2024-03-07 13:11 | US_ITS ---
FINAL REPORT TECHNIQUE: Ultrasound images of the testicles were obtained bilaterally. Color Doppler images were obtained. CLINICAL HISTORY: L testicular pain COMPARISON: None FINDINGS: The right testicle measures 4.6 cm. There is normal blood flow. There is no evidence of mass. Left testicle measures 4.8 cm. There is normal blood flow. There is no evidence of mass. A small hydrocele and a varicocele are noted on the left. IMPRESSION: Small left hydrocele and varicocele. Reviewed, Interpreted and Dictated by Shahzad Villavicencio III, MD Transcribed by Gladys Ling Authenticated and [facility]
[2024-03-07] MEDS: KETOROLAC 30MG/ML VIAL 30 MG IV (13:22)
--- NOTE | 2024-03-07 13:24 | PC.NURSE ---
PT TO US
[2024-03-07 13:32] LABS: Basophils # 0.1 K/mm3 (0-0.2); Basophils % 0.5 % (0.1-2.0); Eosinophils % 0.2 % (0.1-12.0); Hematocrit 44.6 % (42.0-52.0); Lymphocytes % 7.4 % (10-50); Mean Corpuscular HGB Conc 35.9 g/dL (31.8-35.4); Mean Corpuscular Hemoglobin 32.7 pg (27.0-31.2); Mean Corpuscular Volume 91.1 fl (80-94); Mean Platelet Volume 8.5 fl (7.4-10.4); Monocytes # 0.5 K/mm3 (0.1-1.0); Monocytes % 3.4 % (1.7-9.3); Neutrophils % 88.6 % (37.0-80.0); Platelet Count 220 K/mm3 (142-424); White Blood Count 13.6 K/mm3 (4.8-10.8)
[2024-03-07 13:33] LABS: MANUAL DIFFERENTIAL MANUAL DIFFERENTIAL (MANUAL DIFF)
[2024-03-07 13:40] LABS: Chloride 105 mmol/L (98-107); Potassium 3.4 mmoL/L (3.5-5.1); Sodium 141 mmol/L (136-145)
[2024-03-07 13:43] LABS: Alanine Aminotransferase 45 U/L (12-78); Albumin/Globulin Ratio 1.5 (1.1-1.8); Alkaline Phosphatase 54 U/L (38-126); Anion Gap 10.4 mEq/L (5-15); Aspartate Amino Transferase 33 U/L (17-59); Bilirubin,Total 0.7 mg/dl (0.2-1.3); Blood Urea Nitrogen 14 mg/dl (9-20); Calcium 9.7 mg/dl (8.4-10.2); Carbon Dioxide 29 mmol/L (22.0-30.0); Creatinine Clearance Estimated 141 mL/min (50-200); Estimated Glomerular Filt Rate 82 ml/min (>60); GFR (African American) 99 ML/MIN (>60); Globulin 3.3 g/dL (1.3-3.2); Glucose 115 mg/dl (74-100); Lipase 63 U/L (23-300); Total Protein,Serum 8.3 g/dl (6.3-8.2)
[2024-03-07 14:00] LABS: Lymphocytes % 13 % (10-50); Monocytes % 1 % (2-9); Neutrophils % 86 % (42-76); Platelet Estimate Normal; RBC Morphology Normal; Total Cells Counted 100
[2024-03-07 14:07] VITALS: BP 149/96; PULSE 91; O2SAT 97
[2024-03-07] MEDS: SODIUM CHLORIDE 0.9% 10ML SYR (RAD ONLY) 10 ML IV (14:07)
[2024-03-07] MEDS: IOPAMIDOL-370 (76%);100ML BOTTLE 75 ML IV (14:07)
[2024-03-07 14:17] LABS: Microscopic, Urine URINE MICROSCOPIC (MICROSCOPIC)
[2024-03-07 14:22] LABS: Appearance,Urine CLEAR (Clear); Bilirubin,Urine Negative (Negative); Blood, Urine 2+ (Negative); Color,Urine YELLOW (Yellow); Glucose,Urine (UA) Negative (Negative); Ketones,Urine Negative (Negative); Leukocyte Esterase,Urine Negative (Negative); Nitrate,Urine Negative (Negative); Protein,Urine Negative (Negative); Specific Gravity, Urine 1.025 (1.005-1.030); Urobilinogen,Urine 0.2 EU/dl (0.2)
[2024-03-07 14:23] LABS: Lactic Acid 1.3 mmol/L (0.7-2.1)
[2024-03-07 14:30] VITALS: BP 128/84; PULSE 83; O2SAT 97
[2024-03-07 14:35] LABS: RBC,Urine Occasional #/hpf (0-3)
[2024-03-07 14:36] LABS: Squamous Epithelial Cell,Urine Occasional #/hpf (0-5)
[2024-03-07 15:00] VITALS: BP 122/81; PULSE 89; O2SAT 98
[2024-03-07 15:27] VITALS: BP 122/81; PULSE 95; RESP 18; TEMP 37.6; O2SAT 97
== END 2024-03-07 15:31 | disposition home or self-care (01) ==
PROVIDERS: Emergency Provider Emergency Medicine; PCP Family Medicine
DX: N50.812 Left testicular pain (principal); R10.32 Left lower quadrant pain; I86.1 Scrotal varices; N43.3 Hydrocele, unspecified; I10 Essential (primary) hypertension
CPT/HCPCS: 74177; 76870; 80053; 81001; 83605; 83690; 85007; 85025; 85027; 96372; 96374; 99285; J1885; Q9967

== ENCOUNTER 2024-05-04 20:15 | Emergency (ER) | payer BC, SELFPAY ==
[2024-05-04 21:02] VITALS: BP 142/96; PULSE 97; RESP 20; TEMP 36.6; O2SAT 98; BMI 33.0
--- NOTE | 2024-05-04 21:11 | XR_ITS ---
PROCEDURE INFORMATION: Exam: XR Left Foot Exam date and time: 05/04/2024 9:15 PM Age: 44 years old Clinical indication: Pain; Foot; Left; Additional info: Trauma TECHNIQUE: Imaging protocol: Radiologic exam of the left foot. Views: 3 or more views. COMPARISON: CR (FOOT AP, FOOT, FOOT AP) 03/26/2019 4:43 PM FINDINGS: Bones/joints: Normal. Soft tissues: Normal. IMPRESSION: No acute findings.
[2024-05-04 21:30] VITALS: BP 132/86; PULSE 93; O2SAT 96
[2024-05-04 22:00] VITALS: BP 122/81; PULSE 98; O2SAT 96
--- NOTE | 2024-05-04 22:00 | ED_ITS ---
Discharge Plan Disposition Patient Disposition: Home, Self-Care Chief Complaint: PAIN Prescriptions Prescriptions: No Action lisinopril-hydrochlorothiazide 20-12.5 mg tablet 1 tab PO DAILY omega-3 fatty acids Capsule 1,000 mg PO DAILY multivitamin Tablet 1 tab PO DAILY Referrals Follow up/Referrals: David Pruitt MD [Primary Care Provider] - See instructions Activity Restrictions/Add. Instructions Additional Instructions/Restrictions: Call your family doctor to establish care for this visit to the emergency department and schedule follow-up within 48 hours to ensure improvement. If you have any worsening of your condition or any other concerning signs or symptoms, return to the emergency department or your primary care doctor for further evaluation. Take Tylenol 1000 mg every 6 hours (4 times daily) and ibuprofen 400 mg every 6 hours (4 times daily) as needed with food and water to prevent GI upset and kidney damage. Clinical Impressions Clinical Impression: Crush injury of left foot Print Language Print Language: Divehi Discharge ED Provider: Giacomo Alegria General Adult HPI General Chief complaint: PAIN Stated complaint: Left foot pain/swelling/bruising Time Seen by Provider: 05/04/24 21:07 Mode of Arrival: Family Vehicle Source of Information: Patient Limitations: No Limitations Description of Symptoms (Recalled from ER Triage Doc. by RN): Pt. presented to the ED with c/o left foot pain. Pt. had a softball hit the top of left foot 6 days ago.top of foot swollen and brusied. Pt. c/o pain with ambulating. History of Present Illness HPI narrative: Please note that above description of symptoms, in this electronic medical record under categorization of recalled from ER triage doctor by RN are reflective of an initial nursing assessment, however, is not reflective of my full history and physical exam that was personally taken and clarified. Consequentially, this preceding description of symptoms, which may include the patient's categorized chief complaint in the EMR, do not reflect my personal clinical impression, and the ultimate description of history of present illness and patient stated complaints should be deferred to this section of the note. Unless stated otherwise or congruent with this section of the note, additional signs, symptoms, or incongruence should be interpreted as inaccurate with my clinical impression. Related Data Home Medications ?Medication ?Instructions ?Recorded ?Confirmed lisinopril 20 1 tab PO DAILY 10/26/23 12/07/23 mg-hydrochlorothiazide 12.5 mg tablet multivitamin 1 tab PO DAILY 11/01/23 12/07/23 omega-3 fatty acids 1,000 mg PO DAILY 11/01/23 12/07/23 Allergies Allergy/AdvReac Type Severity Reaction Status Date / Time No Known Allergies Allergy Verified 12/07/23 09:16 [facility] Disclaimer: The information contained in this section may have been updated after the patient was seen, as this information can be updated by other users. Medical History Hypertension Surgical History History of excision of lesion History of hernia repair Family History Other Family history of cancer Family history of myocardial infarction Social History Smoking Status: Never smoker alcohol intake: current alcohol intake frequency: holidays/special occasions only current occupational status: employed Travel in the last 8 weeks: None caffeine: Yes ROS Obtained: Yes All systems reviewed & no additional complaints except as documented Physical Exam General General appearance: alert Head Head exam: atraumatic and normocephalic Eye Eye exam: Present normal appearance, PERRL and EOMI Neck Neck exam: Present normal inspection, full ROM and trachea midline Respiratory Respiratory exam: Absent respiratory distress, wheezes, stridor, accessory muscle use or prolonged expiratory phase Cardiovascular Cardiovascular exam: Present other (Pulses equal symmetric in upper and lower extremities) Abdominal Exam Abdominal exam: Present soft; Absent distention, tenderness or pulsatile mass Extremities Exam Extremities exam: Present other (Per MDM); Absent edema Neurological Exam Neurological exam: Present alert, oriented X3 and CN II-XII intact; Absent motor sensory deficit Skin Skin exam: Present warm and dry; Absent diaphoresis or erythema Medical Decision Making Medical Records Medical records reviewed: Yes I reviewed the patient's medical records. Thiago Inquiry Pt receiving controlled substance: No Thiago was queried for this patient: No Vital Signs: 05/04/24 21:02 Temperature 98 F Temperature Source Oral Pulse Rate [Right] 97 H Respiratory Rate 20 Blood Pressure [Right Arm] 142/96 H Blood Pressure Mean [Right Arm] 111 Blood Pressure Source [Right Arm] Automatic Cuff Blood Pressure Position [Right Arm] Sitting 02 Sat by Pulse Oximetry 98 Oxygen Delivery Method Room Air Orders (Tests/Meds): ORDERS Category Date Time Status XR foot LT min 3V Stat Exams 05/04/24 21:11 Completed Medical Decision Narrative: 44-year-old male presenting with left foot bruising. Patient's daughter third softball at it a few days prior to this. Has had progressive swelling and tenderness as well as bruising to the area. Able to ambulate, but with significant pain. Has tried Tylenol, no other interventions including ice or Motrin. Currently moderate in intensity pain when bearing weight, absent at rest. History was obtained via conversation with patient. On arrival, patient hemodynamically stable, alert, oriented x4, appropriate, GCS 15, moving all extremities spontaneously, pupils equal and reactive to light. Full physical exam performed and significant for bruising about second, third, fourth digits on dorsal aspect of left foot. Tenderness at the base of the second MTP. Neurovascularly intact with range of motion intact. Differential clues fracture, dislocation, sprain, among others. X-rays to be obtained, on independent interpretation, these were negative for any acute bony abnormality. Because patient at baseline without signs or symptoms of clinical decompensation, deemed appropriate for discharge. Results were relayed to patient who voiced understanding and were agreeable to outpatient management and follow up. I discussed my clinical impression with patient and answered all questions. At this time, the evidence for any other entities in the differential is insufficient to warrant any further testing or ED observation. This was explained as well. Advisory was given that persistent or worsening symptoms require further evaluation. I confirmed the understanding of this discussion. Regulatory Submissions Associate disclaimer Much of this encounter note is an electronic design quality engineer spoken language to printed text. Electronic design quality engineer of the spoken language may permit errors. Although I have reviewed the note, some errors may still exist. Critical Care Critical Care Time Critical Care Time: No
[2024-05-04 22:18] VITALS: BP 122/81; PULSE 89; RESP 18; TEMP 36.7; O2SAT 98
== END 2024-05-04 22:20 | disposition home or self-care (01) ==
PROVIDERS: Emergency Provider Emergency Medicine; PCP Family Medicine
DX: S90.32XA Contusion of left foot, initial encounter (principal); I10 Essential (primary) hypertension; W21.07XA Struck by softball, initial encounter; Y92.9 Unspecified place or not applicable
CPT/HCPCS: 73630; 99283

== ENCOUNTER 2024-12-05 13:38 | Emergency (ER) | payer BC, SELFPAY ==
[2024-12-05] VITALS (8 sets, daily range): BP systolic 117–146; BP diastolic 85–97; PULSE 89–102; RESP 14–16; TEMP 36.6–36.9; O2SAT 94–99; BMI 35.4
--- NOTE | 2024-12-05 14:05 | XR_ITS ---
FINAL REPORT CLINICAL HISTORY: atraumtaic swelling and pain distal ulna pain started tuesday FINDINGS: 2 views of the left forearm were obtained. There is no acute fracture or dislocation. The joints are intact. There are no soft tissue abnormalities. IMPRESSION: No acute process. Reviewed, Interpreted and Dictated by Roman Martínez MD Transcribed by Erna Matthew Authenticated and [facility]
--- NOTE | 2024-12-05 14:05 | XR_ITS ---
FINAL REPORT CLINICAL HISTORY: atraumtaic swelling and pain distal ulna pain started tuesday FINDINGS: LEFT WRIST THREE VIEW FINDINGS: Three views show no evidence of an acute, displaced fracture or dislocation of the visualized bony architecture. The joint spaces appear normal. IMPRESSION: Unremarkable exam. Reviewed, Interpreted and Dictated by Roman Martínez MD Transcribed by Erna Matthew Authenticated and [facility]
[2024-12-05] MEDS: IBUPROFEN 600 MG TABLET PO (14:14)
[2024-12-05] MEDS: ACETAMINOPHEN 500MG TAB 1000 MG PO (14:14)
--- NOTE | 2024-12-05 14:15 | HMH.EDGENADL ---
Discharge Plan Disposition Patient Disposition: Home, Self-Care Prescriptions Prescriptions: No Action lisinopril-hydrochlorothiazide 20-12.5 mg tablet 1 tab PO DAILY omega-3 fatty acids Capsule 1,000 mg PO DAILY multivitamin Tablet 1 tab PO DAILY Referrals Follow up/Referrals: David Pruitt MD [Primary Care Provider] - See instructions Derik Johnson DO [Staff Physician] - See instructions Activity Restrictions/Add. Instructions Additional Instructions/Restrictions: At this time it was felt you are safe to be discharged home. If new or worsening symptoms please do not hesitate to return the emergency department. Please call and schedule an appointment with Dr. Johnson as soon as you are able and wear your wrist splint for comfort. Clinical Impressions Clinical Impression: Acute wrist pain Print Language Print Language: Latvian Discharge ED Provider: Bud Bennett General Adult HPI <Giacomo Alegria MD - Last Filed: 12/05/24 15:37> General Chief complaint: PAIN Stated complaint: L Wrist pain w/bruising swelling Time Seen by Provider: 12/05/24 13:45 Mode of Arrival: Ambulatory Source of Information: Patient Description of Symptoms (Recalled from ER Triage Doc. by RN): patient states on tuesday he woke up with his left wrist hurting. he denies any injuries. History of Present Illness HPI narrative: Please note that above description of symptoms, in this electronic medical record under categorization of recalled from ER triage doctor by RN are reflective of an initial nursing assessment, however, is not reflective of my full history and physical exam that was personally taken and clarified. Consequentially, this preceding description of symptoms, which may include the patient's categorized chief complaint in the EMR, do not reflect my personal clinical impression, and the ultimate description of history of present illness and patient stated complaints should be deferred to this section of the note. Unless stated otherwise or congruent with this section of the note, additional signs, symptoms, or incongruence should be interpreted as inaccurate with my clinical impression. Related Data Home Medications ?Medication ?Instructions ?Recorded ?Confirmed lisinopril 20 1 tab PO DAILY 10/26/23 12/07/23 mg-hydrochlorothiazide 12.5 mg tablet multivitamin 1 tab PO DAILY 11/01/23 12/07/23 omega-3 fatty acids 1,000 mg PO DAILY 11/01/23 12/07/23 Allergies Allergy/AdvReac Type Severity Reaction Status Date / Time No Known Allergies Allergy Verified 12/05/24 14:03 [facility] <Giacomo Alegria MD - Last Filed: 12/05/24 15:37> [facility] Disclaimer: The information contained in this section may have been updated after the patient was seen, as this information can be updated by other users. Medical History Hypertension Surgical History History of excision of lesion History of hernia repair Family History Other Family history of cancer Family history of myocardial infarction Social History Smoking Status: Current every day smoker alcohol intake: current alcohol intake frequency: holidays/special occasions only current occupational status: employed Travel in the last 8 weeks: None caffeine: Yes Have you lived/traveled outside [place] in past 30 days?: No Contact w/someone who lives/traveled outside US past 30 days?: No Exposure to someone with infectious disease in past 14 days?: No Do you have a fever (greater than 100.4 F or 38 C)?: No Have you tested positive for COVID-19: No Exposed to someone with COVID-19 in past 14 days?: No Do you have a sore throat?: No Do you have a cough?: No Do you have any weakness?: No Do you have any diarrhea?: No Are you experiencing any unusual bleeding?: No Do you have any muscle aches/pain?: No Do you have any abdominal pain?: No Are you experiencing loss of taste or smell?: No Other Medical History Have you received the Flu Vaccine for this season: No Have you received the Pneumonia Vaccine: No <Giacomo Alegria MD - Last Filed: 12/05/24 15:37> ROS Obtained: Yes All systems reviewed & no additional complaints except as documented Physical Exam <Giacomo Alegria MD - Last Filed: 12/05/24 15:37> General General appearance: alert Head Head exam: atraumatic and normocephalic Eye Eye exam: Present normal appearance, PERRL and EOMI Neck Neck exam: Present normal inspection, full ROM and trachea midline Respiratory Respiratory exam: Absent respiratory distress, wheezes, stridor, accessory muscle use or prolonged expiratory phase Cardiovascular Cardiovascular exam: Present other (Pulses equal symmetric in upper and lower extremities) Abdominal Exam Abdominal exam: Present soft; Absent distention, tenderness or pulsatile mass Extremities Exam Extremities exam: Present edema and joint swelling (Left ulnocarpal joint swelling and tenderness. Supination limited secondary to pain) Neurological Exam Neurological exam: Present alert, oriented X3 and CN II-XII intact; Absent motor sensory deficit Skin Skin exam: Present warm and dry; Absent diaphoresis or erythema Medical Decision Making <Giacomo Alegria MD - Last Filed: 12/05/24 15:37> Medical Records Medical records reviewed: Yes I reviewed the patient's medical records. Screening: Per USPSTF and CDC recommendations, given the prevalence of disease in our region, it is our hospital?s policy to screen for HIV and viral Hepatitis for all patients aged 18 and over and those with ongoing risk factors. Thiago Inquiry Pt receiving controlled substance: No Thiago was queried for this patient: No Vital Signs: 12/05/24 13:48 12/05/24 14:00 12/05/24 14:20 Temperature 98.4 F Temperature Source Oral Pulse Rate 102 H 101 H Pulse Rate [Right] 101 H Respiratory Rate 14 Blood Pressure 128/94 H 119/94 H Blood Pressure [Right Arm] 146/97 H Blood Pressure Mean 100 101 Blood Pressure Mean [Right Arm] 113 Blood Pressure Source [Right Arm] Automatic Cuff Blood Pressure Position [Right Arm] Sitting 02 Sat by Pulse Oximetry 99 95 95 Oxygen Delivery Method Room Air 12/05/24 14:40 12/05/24 15:00 12/05/24 15:20 Temperature Temperature Source Pulse Rate 101 H 97 H 97 H Pulse Rate [Right] Respiratory Rate Blood Pressure 127/87 129/90 121/85 Blood Pressure [Right Arm] Blood Pressure Mean 99 99 94 Blood Pressure Mean [Right Arm] Blood Pressure Source [Right Arm] Blood Pressure Position [Right Arm] 02 Sat by Pulse Oximetry 95 94 L 94 L Oxygen Delivery Method 12/05/24 15:40 Temperature Temperature Source Pulse Rate 95 H Pulse Rate [Right] Respiratory Rate Blood Pressure 117/87 Blood Pressure [Right Arm] Blood Pressure Mean Blood Pressure Mean [Right Arm] Blood Pressure Source [Right Arm] Blood Pressure Position [Right Arm] 02 Sat by Pulse Oximetry 94 L Oxygen Delivery Method Room Air Lab Data Lab Results 12/05/24 16:03: WBC 7.4, RBC 4.62, Hgb 14.5, Hct 40.9 L, MCV 88.5, MCH 31.4 H, MCHC 35.5 H, RDW 11.5, Plt Count 231, MPV 10.3, Neut % (Auto) 68.9, Lymph % (Auto) 22.1, Tucker % (Auto) 7.1, Eos % (Auto) 1.1, Baso % (Auto) 0.5, Neut # (Auto) 5.1, Lymph # (Auto) 1.6, Tucker # (Auto) 0.5, Eos # (Auto) 0.1, Baso # (Auto) 0.0, ESR 21 H, Sodium 140, Potassium 3.8, Chloride 103, Carbon Dioxide 27, Anion Gap 13.8, BUN 16, Creatinine 0.90, Estimated Creat Clear 161, Estimated GFR 92, Est GFR ( Amer) 111, Glucose 96, Calcium 9.2, Total Bilirubin 0.5, AST 34, ALT 34, Alkaline Phosphatase 68, C-Reactive Protein 7.3 H, Total Protein 7.6, Albumin 4.5, Globulin 3.1, Albumin/Globulin Ratio 1.5, HIV Ag/Ab Combo Qual Negative 12/05/24 16:03 12/05/24 16:03 Orders (Tests/Meds): ED MEDICATIONS Discontinued Medications Generic Name Dose Route Start Last Admin Trade Name Freq PRN Reason Stop Dose Admin Acetaminophen 1,000 mg 12/05/24 14:09 12/05/24 14:14 Acetaminophen 500mg Tab PO 12/05/24 14:10 1,000 mg ONCE ONE Administration Ibuprofen 600 mg 12/05/24 14:05 12/05/24 14:14 Ibuprofen 600 Mg Tablet PO 12/05/24 14:06 600 mg ONCE ONE Administration ORDERS Category Date Time Status Forearm XR left 2 views [XR forearm LT 2V] Stat Exams 12/05/24 14:05 Completed Wrist XR left minimum 3 views [XR wrist LT min 3V] Stat Exams 12/05/24 14:05 Completed CBC w/Auto Diff [Complete Blood Count Auto Diff] Stat Lab 12/05/24 16:03 Completed CMP [Comprehensive Metabolic Panel] Stat Lab 12/05/24 16:03 Completed CRP [C-Reactive Protein] Stat Lab 12/05/24 16:03 Completed ESR [Erythrocyte Sedimentation Rate] Stat Lab 12/05/24 16:03 Completed HIV Combo Stat Lab 12/05/24 16:03 Completed Hepatitis C Ab Qual. W/ RFX Stat Lab 12/05/24 16:03 Received Blood Culture Stat Micro 12/05/24 16:14 Received Medical Decision Narrative: 44-year-old male presenting with atraumatic left wrist pain. He states has been going on for about 3 days at this point, seems like it has been getting worse. Associated bruising, swelling. 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 No neurovascular deficits, no other swollen joints. No fevers, chills, systemic signs or symptoms, other red, hot swollen joints, history of IV drug abuse, or any other concerns. History was obtained via conversation with patient. On arrival, patient hemodynamically stable, alert, [oriented x4, ][appropriate, ]GCS [15], moving all extremities spontaneously, pupils equal and reactive to light. Full physical exam performed and significant for very clinically well-appearing male no acute distress. Left ulnocarpal joint swelling and tenderness. Supination limited secondary to pain. Neurovascular intact, range of motion of wrist in flexion and extension intact, but painful. Differential includes fracture, sprain, strain, hot joint, among others. Patient placed on continuous cardiac monitoring and continuous pulse ox with initial blood pressure 146/97, heart rate 91, saturation 99% on room air. X-rays were ordered, on independent to interpretation, these were negative for acute bony abnormality. Because patient mildly tachycardic and has no other reason for her wrist to be swollen, I talked to the oncoming physician and shared decision making landed on labs to rule out possibly infectious joint. Prior to these being performed and disposition, care handed off to oncoming physician Stitcher Set Up Operator Automatic disclaimer Much of this encounter note is an electronic soft drink powder mixer spoken language to printed text. Electronic soft drink powder mixer of the spoken language may permit errors. Although I have reviewed the note, some errors may still exist. <Bud Bennett MD - Last Filed: 12/05/24 18:04> Vital Signs: 12/05/24 13:48 12/05/24 14:00 12/05/24 14:20 Temperature 98.4 F Temperature Source Oral Pulse Rate 102 H 101 H Pulse Rate [Right] 101 H Respiratory Rate 14 Blood Pressure 128/94 H 119/94 H Blood Pressure [Right Arm] 146/97 H Blood Pressure Mean 100 101 Blood Pressure Mean [Right Arm] 113 Blood Pressure Source [Right Arm] Automatic Cuff Blood Pressure Position [Right Arm] Sitting 02 Sat by Pulse Oximetry 99 95 95 Oxygen Delivery Method Room Air 12/05/24 14:40 12/05/24 15:00 12/05/24 15:20 Temperature Temperature Source Pulse Rate 101 H 97 H 97 H Pulse Rate [Right] Respiratory Rate Blood Pressure 127/87 129/90 121/85 Blood Pressure [Right Arm] Blood Pressure Mean 99 99 94 Blood Pressure Mean [Right Arm] Blood Pressure Source [Right Arm] Blood Pressure Position [Right Arm] 02 Sat by Pulse Oximetry 95 94 L 94 L Oxygen Delivery Method 12/05/24 15:40 Temperature Temperature Source Pulse Rate 95 H Pulse Rate [Right] Respiratory Rate Blood Pressure 117/87 Blood Pressure [Right Arm] Blood Pressure Mean Blood Pressure Mean [Right Arm] Blood Pressure Source [Right Arm] Blood Pressure Position [Right Arm] 02 Sat by Pulse Oximetry 94 L Oxygen Delivery Method Room Air Lab Data Lab Results 12/05/24 16:03: WBC 7.4, RBC 4.62, Hgb 14.5, Hct 40.9 L, MCV 88.5, MCH 31.4 H, MCHC 35.5 H, RDW 11.5, Plt Count 231, MPV 10.3, Neut % (Auto) 68.9, Lymph % (Auto) 22.1, Tucker % (Auto) 7.1, Eos % (Auto) 1.1, Baso % (Auto) 0.5, Neut # (Auto) 5.1, Lymph # (Auto) 1.6, Tucker # (Auto) 0.5, Eos # (Auto) 0.1, Baso # (Auto) 0.0, ESR 21 H, Sodium 140, Potassium 3.8, Chloride 103, Carbon Dioxide 27, Anion Gap 13.8, BUN 16, Creatinine 0.90, Estimated Creat Clear 161, Estimated GFR 92, Est GFR ( Amer) 111, Glucose 96, Calcium 9.2, Total Bilirubin 0.5, AST 34, ALT 34, Alkaline Phosphatase 68, C-Reactive Protein 7.3 H, Total Protein 7.6, Albumin 4.5, Globulin 3.1, Albumin/Globulin Ratio 1.5, HIV Ag/Ab Combo Qual Negative Orders (Tests/Meds): ED MEDICATIONS Discontinued Medications Generic Name Dose Route Start Last Admin Trade Name Ame PRN Reason Stop Dose Admin Acetaminophen 1,000 mg 12/05/24 14:09 12/05/24 14:14 Acetaminophen 500mg Tab PO 12/05/24 14:10 1,000 mg ONCE ONE Administration Ibuprofen 600 mg 12/05/24 14:05 12/05/24 14:14 Ibuprofen 600 Mg Tablet PO 12/05/24 14:06 600 mg ONCE ONE Administration ORDERS Category Date Time Status Forearm XR left 2 views [XR forearm LT 2V] Stat Exams 12/05/24 14:05 Completed Wrist XR left minimum 3 views [XR wrist LT min 3V] Stat Exams 12/05/24 14:05 Completed CBC w/Auto Diff [Complete Blood Count Auto Diff] Stat Lab 12/05/24 16:03 Completed CMP [Comprehensive Metabolic Panel] Stat Lab 12/05/24 16:03 Completed CRP [C-Reactive Protein] Stat Lab 12/05/24 16:03 Completed ESR [Erythrocyte Sedimentation Rate] Stat Lab 12/05/24 16:03 Completed HIV Combo Stat Lab 12/05/24 16:03 Completed Hepatitis C Ab Qual. W/ RFX Stat Lab 12/05/24 16:03 Received Blood Culture Stat Micro 12/05/24 16:14 Received Medical Decision Narrative: 44-year-old male presenting with atraumatic left wrist pain. He states has been going on for about 3 days at this point, seems like it has been getting worse. Associated bruising, swelling. 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 No neurovascular deficits, no other swollen joints. No fevers, chills, systemic signs or symptoms, other red, hot swollen joints, history of IV drug abuse, or any other concerns. History was obtained via conversation with patient. On arrival, patient hemodynamically stable, alert, [oriented x4, ][appropriate, ]GCS [15], moving all extremities spontaneously, pupils equal and reactive to light. Full physical exam performed and significant for very clinically well-appearing male no acute distress. Left ulnocarpal joint swelling and tenderness. Supination limited secondary to pain. Neurovascular intact, range of motion of wrist in flexion and extension intact, but painful. Differential includes fracture, sprain, strain, hot joint, among others. Patient placed on continuous cardiac monitoring and continuous pulse ox with initial blood pressure 146/97, heart rate 91, saturation 99% on room air. X-rays were ordered, on independent to interpretation, these were negative for acute bony abnormality. Because patient mildly tachycardic and has no other reason for her wrist to be swollen, I talked to the oncoming physician and shared decision making landed on labs to rule out possibly infectious joint. Prior to these being performed and disposition, care handed off to oncoming physician. Bud Bennett: Upon assumption of care patient was hemodynamically stable. Hematologic labs were conducted, no significant leukocytosis, very mild elevation in inflammatory markers. Upon repeat evaluation patient does not have any significant erythema or warmth over the affected joint. He has positional range of motion problems which is interesting and in my opinion points towards a musculoskeletal problem rather than anything like infectious arthritis. Given this patient was given cock-up wrist splint for comfort and will follow-up with orthopedics in the coming days and was given multiple return precautions verbalized understanding. Stitcher Set Up Operator Automatic disclaimer Much of this encounter note is an electronic soft drink powder mixer spoken language to printed text. Electronic soft drink powder mixer of the spoken language may permit errors. Although I have reviewed the note, some errors may still exist. Critical Care <Giacomo Alegria MD - Last Filed: 12/05/24 15:37> Critical Care Time Critical Care Time: No
[2024-12-05 16:15] LABS: Basophils % 0.5 % (0.1-2.0); Eosinophils # 0.1 K/mm3 (0.0-0.4); Eosinophils % 1.1 % (0.1-12.0); Hematocrit 40.9 % (42.0-52.0); Hemoglobin 14.5 g/dL (14.1-18.0); Lymphocytes # 1.6 K/mm3 (0.7-4.5); Lymphocytes % 22.1 % (10-50); Mean Corpuscular HGB Conc 35.5 g/dL (31.8-35.4); Mean Corpuscular Hemoglobin 31.4 pg (27.0-31.2); Mean Corpuscular Volume 88.5 fl (80-94); Mean Platelet Volume 10.3 fl (7.4-10.4); Monocytes # 0.5 K/mm3 (0.1-1.0); Monocytes % 7.1 % (1.7-9.3); Neutrophils # 5.1 K/mm3 (1.8-7.8); Neutrophils % 68.9 % (37.0-80.0); Platelet Count 231 K/mm3 (142-424); Red Blood Count 4.62 M/mm3 (4.60-6.20); Red Cell Distribution Width 11.5 % (11.5-17.5); White Blood Count 7.4 K/mm3 (4.8-10.8)
[2024-12-05 16:22] LABS: Albumin Level 4.5 g/dl (3.5-5.0); Chloride 103 mmol/L (98-107); Potassium 3.8 mmoL/L (3.5-5.1); Sodium 140 mmol/L (136-145)
[2024-12-05 16:25] LABS: Alanine Aminotransferase 34 U/L (12-78); Albumin/Globulin Ratio 1.5 (1.1-1.8); Alkaline Phosphatase 68 U/L (38-126); Anion Gap 13.8 mEq/L (5-15); Aspartate Amino Transferase 34 U/L (17-59); Bilirubin,Total 0.5 mg/dl (0.2-1.3); Blood Urea Nitrogen 16 mg/dl (9-20); Calcium 9.2 mg/dl (8.4-10.2); Carbon Dioxide 27 mmol/L (22.0-30.0); Creatinine Clearance Estimated 161 mL/min (50-200); Estimated Glomerular Filt Rate 92 ml/min (>60); GFR (African American) 111 ML/MIN (>60); Globulin 3.1 g/dL (1.3-3.2); Glucose 96 mg/dl (74-100); Total Protein,Serum 7.6 g/dl (6.3-8.2)
[2024-12-05 16:31] LABS: C-Reactive Protein 7.3 mg/L (0-4)
[2024-12-05 16:44] LABS: Erythrocyte Sedimentation Rate 21 mm/hr (0-15)
[2024-12-05 17:49] LABS: HIV Combo NEGATIVE (Negative)
[2024-12-05 17:58] LABS: Hepatitis C Ab Qual. W/ RFX NEGATIVE (Negative)
== END 2024-12-05 18:32 | disposition home or self-care (01) ==
PROVIDERS: Emergency Medicine; Emergency Provider Emergency Medicine; PCP Family Medicine
DX: M25.532 Pain in left wrist (principal); R22.32 Localized swelling, mass and lump, left upper limb; Z72.0 Tobacco use
CPT/HCPCS: 73090; 73110; 80053; 85025; 85651; 86140; 86803; 87040; 87389; 99283

== ENCOUNTER 2025-06-16 18:23 | Emergency (ER) | payer BC, SELFPAY ==
[2025-06-16 18:31] VITALS: BP 132/90; PULSE 86; RESP 16; TEMP 37.3; O2SAT 99; BMI 32.1
--- NOTE | 2025-06-16 19:06 | XR_ITS ---
PROCEDURE INFORMATION: Exam: XR Chest Exam date and time: 06/16/2025 7:16 PM Age: 45 years old Clinical indication: Pain; Shortness of breath; Chest pressure; Additional info: Cp SOA TECHNIQUE: Imaging protocol: Radiologic exam of the chest. Views: 1 view. COMPARISON: CR XR RIBS RT MIN 3V W CXR1V 03/04/2020 10:56 AM FINDINGS: Lungs: Question of a 8 mm benign calcified granuloma in the left lung base versus a vessel seen on end. No consolidations. Pleural spaces: Unremarkable. No pleural effusion. No pneumothorax. Heart/Mediastinum: Unremarkable. No cardiomegaly. Bones/joints: Unremarkable. IMPRESSION: No acute findings.
--- NOTE | 2025-06-16 19:11 | ECG_ITS ---
APPROVED REPORT Exam: Resting ECG HR:81 bpm ECG Measurements Heart Rate 81 AXES LA 134 P 40 QRSd 98 QRS 37 QT 359 T 49 QTc 396 Conclusion Normal sinus rhythm without acute ST or T wave changes concerning for ischemia Electronically signed by : Yahaira Geller, 06/17/2025 01:00:43
[2025-06-16 19:24] VITALS: PULSE 86; RESP 18; O2SAT 97
[2025-06-16] MEDS: KETOROLAC 15MG/ML VIAL 15 MG IV (19:26)
[2025-06-16 19:30] VITALS: BP 137/98; PULSE 88; RESP 20; O2SAT 95
[2025-06-16 19:33] LABS: Hematocrit 43.9 % (42.0-52.0); Hemoglobin 15.3 g/dL (14.1-18.0); Immature Granulocytes % 0.3 %; Mean Corpuscular HGB Conc 34.9 g/dL (31.8-35.4); Mean Corpuscular Hemoglobin 30.8 pg (27.0-31.2); Mean Corpuscular Volume 88.5 fl (80-94); Nucleated Red Blood Cells % 0 %; Platelet Count 219 K/mm3 (142-424); Red Blood Count 4.96 M/mm3 (4.60-6.20); Red Cell Distribution Width-SD 36.3 fL; White Blood Count 7.1 K/mm3 (4.8-10.8)
--- NOTE | 2025-06-16 19:36 | ED_ITS ---
<Statement entered by Yahaira Geller DO - 06/18/25 23:52> I was consulted by the ELIZ, and we discussed the complexity of problems being addressed. I approve the treatment and management plan for this patient's care in the emergency department, thus performing a substantial portion of the medical decision making. Yahaira Geller DO Discharge Plan Disposition Patient Disposition: Home, Self-Care Prescriptions Prescriptions: No Action lisinopril-hydrochlorothiazide 20-12.5 mg tablet 1 tab PO DAILY omega-3 fatty acids Capsule 1,000 mg PO DAILY multivitamin Tablet 1 tab PO DAILY indomethacin 25 mg capsule 25 mg PO TID PRN (Reason: wrist pain) Qty: 21 0RF Rx Instructions: administer with food or milk Referrals Follow up/Referrals: David Pruitt MD [Primary Care Provider, Medical] - See instructions Activity Restrictions/Add. Instructions Additional Instructions/Restrictions: Today you were evaluated in the emergency department. Your workup was overall unremarkable. Your chest x-ray does not any acute findings. Please follow-up with your primary care provider within 48 hours. Please return to the ED for worsening of condition Clinical Impressions Clinical Impression: Arm pain, Chest wall pain Instructions Patient Instructions: DI for Chest Pain Print Language Print Language: Citizen Of [place] Discharge ED Provider: Yahaira Geller General Adult HPI General Chief complaint: PAIN Stated complaint: pain in left arm, numbness Time Seen by Provider: 06/16/25 18:34 Mode of Arrival: Ambulatory Source of Information: Patient Description of Symptoms (Recalled from ER Triage Doc. by RN): pt presents to ED with c/o left arm pain from elbow to armpit. pt reports tuesday he woke up with the pain. History of Present Illness HPI narrative: patient is a 45-year-old male PMHx hypertension who presents to the ED for left arm pain and left chest wall pain that occurred 5 days ago and has been constant since then. Patient states he played sports Tuesday that he normally does not play, woke up Tuesday with the pain. Related Data Home Medications ?Medication ?Instructions ?Recorded ?Confirmed lisinopril 20 1 tab PO DAILY 10/26/2312/05 mg-hydrochlorothiazide 12.5 mg tablet multivitamin 1 tab PO DAILY 11/01/2312/05 omega-3 fatty acids 1,000 mg PO DAILY 11/01/23 0 12/24/24 Previous Rx's ?Medication ?Instructions ?Recorded indomethacin 25 mg capsule 25 mg PO TID PRN wrist pain #21 12/05/24 caps Allergies Allergy/AdvReac Type Severity Reaction Status Date / Time No Known Allergies Allergy Verified 12/24/24 13:58 [facility] Disclaimer: The information contained in this section may have been updated after the patient was seen, as this information can be updated by other users. Medical History Hypertension Surgical History History of excision of lesion History of hernia repair Family History Other Family history of cancer Family history of myocardial infarction Social History Smoking Status: Never smoker alcohol intake: current alcohol intake frequency: holidays/special occasions only current occupational status: employed Travel in the last 8 weeks?: None caffeine: Yes Have you lived/traveled outside [place] in past 30 days?: No Contact w/someone who lives/traveled outside [place] past 30 days?: No Exposure to someone with infectious disease in past 14 days?: No Do you have a fever (greater than 100.4 F or 38 C)?: No Have you tested positive for COVID-19?: No Exposed to someone with COVID-19 in past 14 days?: No Do you have a sore throat?: No Do you have a cough?: No Do you have any weakness?: No Do you have any diarrhea?: No Are you experiencing any unusual bleeding?: No Do you have any muscle aches/pain?: No Do you have any abdominal pain?: No Are you experiencing loss of taste or smell?: No Other Medical History Have you received the Flu Vaccine for this season: No Have you received the Pneumonia Vaccine: No ROS Obtained: Yes Systems reviewed as appropriate & no additional complaints except as documented Physical Exam General General appearance: alert Head Head exam: atraumatic Eye Eye exam: Present PERRL Neck Neck exam: Present full ROM Respiratory Respiratory exam: Present normal lung sounds bilaterally Cardiovascular Cardiovascular exam: Present regular rate Abdominal Exam Abdominal exam: Present soft Back Exam Back exam: Present full ROM Neurological Exam Neurological exam: Present alert and oriented X3 Skin Skin exam: Present warm and dry Medical Decision Making Medical Records Screening: Per USPSTF and CDC recommendations, given the prevalence of disease in our region, it is our hospital?s policy to screen for HIV and viral Hepatitis for all patients aged 18 and over and those with ongoing risk factors. [place] Inquiry Pt receiving controlled substance: No Vital Signs: 06/16/25 18:31 06/16/25 19:24 06/16/25 19:30 Temperature 99.1 F Temperature Source Oral Pulse Rate 86 Pulse Rate [Left Radial] 86 Respiratory Rate 16 18 Blood Pressure 137/98 H Blood Pressure [Right Arm] 132/90 Blood Pressure Mean 109 Blood Pressure Mean [Right Arm] 104 02 Sat by Pulse Oximetry 99 97 06/16/25 19:30 Temperature Temperature Source Pulse Rate 88 Pulse Rate [Left Radial] Respiratory Rate 20 Blood Pressure Blood Pressure [Right Arm] Blood Pressure Mean Blood Pressure Mean [Right Arm] 02 Sat by Pulse Oximetry 95 Lab Data Lab Results 06/16/25 19:25: WBC 7.1, RBC 4.96, Hgb 15.3, Hct 43.9, MCV 88.5, MCH 30.8, MCHC 34.9, RDW 11.4 L, Plt Count 219, MPV 10.1, Neut % (Auto) 61.5, Lymph % (Auto) 29.8, Armstrong % (Auto) 6.1, Eos % (Auto) 1.7, Baso % (Auto) 0.6, Neut # (Auto) 4.4, Lymph # (Auto) 2.1, Armstrong # (Auto) 0.4, Eos # (Auto) 0.1, Baso # (Auto) 0.0, Sodium 137, Potassium 3.7, Chloride 98, Carbon Dioxide 28, Anion Gap 14.7, BUN 17, Creatinine 1.00, Estimated Creat Clear 138, Estimated GFR 81, Est GFR ( Amer) 98, Glucose 101 H, Calcium 9.4, Total Bilirubin 0.7, AST 28, ALT 30, Alkaline Phosphatase 61, Troponin I < 0.01, Total Protein 7.8, Albumin 4.8, Globulin 3.0, Albumin/Globulin Ratio 1.6 06/16/25 19:25 06/16/25 19:25 Orders (Tests/Meds): ED MEDICATIONS Discontinued Medications Generic Name Dose Route Start Last Admin Trade Name Ame PRN Reason Stop Dose Admin Ketorolac Tromethamine 15 mg 06/16/25 19:06 06/16/25 19:26 Ketorolac 15mg/Ml Vial IV 06/16/25 19:07 15 mg ONCE ONE Administration ORDERS Category Date Time Status CXR --portable [XR chest portable] Stat Exams 06/16/25 19:06 Taken CBC w/Auto Diff [Complete Blood Count Auto Diff] Stat Lab 06/16/25 19:25 Completed CMP [Comprehensive Metabolic Panel] Stat Lab 06/16/25 19:25 Completed Trop I [Troponin I] Stat Lab 06/16/25 19:25 Completed Troponin I Q3H Lab 06/16/25 22:15 Ordered Troponin I Q3H Lab 06/17/25 01:15 Ordered EKG Request [ECG Request] Stat Y 06/16/25 19:06 Ordered Medical Decision Narrative: In summary, patient is a 45-year-old male PMHx hypertension who presents to the ED for left arm pain and left chest wall pain that occurred 5 days ago and has been constant since then. Patient states he played sports Tuesday that he normally does not play, woke up Tuesday with the pain. He is unsure if this is related. He has no significant cardiac history, takes blood pressure medication and has not missed any doses. He denies additional complaints. Denies fever, chills, headache, neck pain, shortness of breath, back pain, abdominal pain, nausea, vomiting. Differential diagnoses include ACS, pulmonary embolism, muscular strain, pneumonia, pneumothorax, among others. Upon initial evaluation patient is alert, oriented and cooperative. He is stable. Physical exam is unremarkable, chest wall nontender. Will symptomatically manage with Toradol. CBC unremarkable for any leukocytosis, stable H&H. CMP unremarkable for any actionable abnormalities. Troponin < 0.01. Informal interpretation of the chest x-ray is no acute findings. Upon reassessment, patient's condition has improved. He is pain-free. Discussed follow-up within 48 hours with PCP. We discussed return precautions to the ED and patient verbalized understanding. Critical Care Critical Care Time Critical Care Time: No
[2025-06-16 19:43] LABS: Alanine Aminotransferase 30 U/L (12-78); Albumin Level 4.8 g/dl (3.5-5.0); Albumin/Globulin Ratio 1.6 (1.1-1.8); Alkaline Phosphatase 61 U/L (38-126); Anion Gap 14.7 mEq/L (5-15); Aspartate Amino Transferase 28 U/L (17-59); Bilirubin,Total 0.7 mg/dl (0.2-1.3); Blood Urea Nitrogen 17 mg/dl (9-20); Calcium 9.4 mg/dl (8.4-10.2); Carbon Dioxide 28 mmol/L (22.0-30.0); Chloride 98 mmol/L (98-107); Creatinine Clearance Estimated 138 mL/min (50-200); Creatinine,Serum 1.00 mg/dl (0.66-1.25); Estimated Glomerular Filt Rate 81 ml/min (>60); GFR (African American) 98 ML/MIN (>60); Globulin 3.0 g/dL (1.3-3.2); Glucose 101 mg/dl (74-100); Potassium 3.7 mmoL/L (3.5-5.1); Sodium 137 mmol/L (136-145); Total Protein,Serum 7.8 g/dl (6.3-8.2)
[2025-06-16 19:55] LABS: Troponin I < 0.01 ng/ml (0.00-0.034)
[2025-06-16 20:01] VITALS: BP 152/105; PULSE 74; RESP 14; O2SAT 98
[2025-06-16 20:11] VITALS: BP 141/97; PULSE 72; RESP 14; TEMP 37.3; O2SAT 99
== END 2025-06-16 20:12 | disposition home or self-care (01) ==
PROVIDERS: Nurse Practitioner; Emergency Provider Student in an Organized Health Care Education/Training Program; PCP Family Medicine
DX: R07.89 Other chest pain (principal); M79.602 Pain in left arm; I10 Essential (primary) hypertension
CPT/HCPCS: 71045; 80053; 84484; 85025; 93005; 96374; 99284; J1885